=== PATIENT | male | born 1945 | race African-American/Black ===

== ENCOUNTER → 2018-11-01 | Outpatient (CLI) | payer OTHER ==
[2016-07-27 11:00] VITALS: BP 132/63
[~2018-11-01] MED LIST: ALBU2.5V8 IH; ALLO300T PO; AMLO10TA6 PO; AMLO5TAB7 PO; CARV6.2511 PO; COLC0.6T34 PO; FURO20TA3 PO; GEMF600T8 PO; LIPA1CAP14 PO; LOSA100T14 PO; OMEP40CA5 PO; ONDA4TAB7 PO
[2018-11-01 10:20] LABS: BILIRUBIN,URINE NEGATIVE (NEG); CLARITY,URINE CLEAR; COLOR,URINE YELLOW; NITRITE,URINE NEGATIVE (NEG); PROTEIN,URINE NEGATIVE (NEG-TRACE); UROBILINOGEN,URINE 0.2 mg/dL (0.2 mg/dL)
[2018-11-01 10:38] LABS: ALBUMIN 3.5 g/dL (3.4-5.0); CALCIUM 9.6 mg/dL (8.5-10.1); CREATININE 1.8 mg/dL (0.7-1.3); GFR 44.7; POTASSIUM 3.4 mmol/L (3.5-5.1); URIC ACID 5.6 mg/dL (3.5-7.2)
[2018-11-01 10:41] LABS: BACTERIA,URINE 0 /HPF (0-FEW); SQUAMOUS EPITHELIAL CELL,UR OCC /LPF
[2018-11-01 18:15] LABS: CREAT RD UR 26.9 mg/dL (Not Estab.); MICRO CREAT RATIO <11.2 mg/g creat (0.0-30.0); MICROALB RD UR <3.0 ug/mL (Not Estab.); UR PROTEIN RD <4.0 mg/dL (Not Estab.)
[2018-11-02 00:17] LABS: CALCIUM PTH 9.5 mg/dL (8.6-10.2); PTH INTACT 98 pg/mL (15-65)
== END | disposition home or self-care (01) ==
LOC: LAB 09:40
PROVIDERS: ATTEND Internal Medicine Nephrology
DX: I12.9 Hypertensive chronic kidney disease with stage 1 through stage 4 chronic kidney disease, or unspecified chronic kidney disease (principal); N18.4 Chronic kidney disease, stage 4 (severe); Z68.29 Body mass index [BMI] 29.0-29.9, adult
CPT/HCPCS: 36415; 80069; 81001; 82043; 82306; 82570; 83970; 84156; 84550

== ENCOUNTER → 2018-12-06 | Outpatient (CLI) | payer OTHER ==
[2016-07-27 11:00] VITALS: BP 132/63
[~2018-12-06] MED LIST changes: -AMLO10TA6 PO; +AMLO10TA8 PO; +AMLO5TAB10 PO; -AMLO5TAB7 PO
--- NOTE | 2018-12-06 17:01 | RAD ---
EXAM: Renal sonogram. HISTORY: Renal insufficiency. TECHNIQUE: Sonographic imaging of the kidneys and bladder was performed. COMPARISON: None. FINDINGS: The right kidney measures 11.0 cm [id number]. The left kidney measures 9.9 cm [id number]. There are multiple bilateral renal cysts, the largest of which on the right is seen within the upper pole measuring 8.5 cm and the largest of which on the left is seen within the upper pole measuring 2.8 cm. The bladder is unremarkable. There is no post void residual. There is no hydronephrosis. IMPRESSION: 1. Multiple bilateral renal cysts. 2. Otherwise, unremarkable renal sonogram. Electronically signed by: Aleksandra Tineo MD (12/06/2018 4:58 PM) [id number]
== END | disposition home or self-care (01) ==
LOC: US 15:18
PROVIDERS: ATTEND Internal Medicine Nephrology
DX: I12.9 Hypertensive chronic kidney disease with stage 1 through stage 4 chronic kidney disease, or unspecified chronic kidney disease (principal); N18.4 Chronic kidney disease, stage 4 (severe); N28.1 Cyst of kidney, acquired
CPT/HCPCS: 76770